=== PATIENT | female | born 1975 | race Caucasian/White ===

== ENCOUNTER → 2016-11-02 | Outpatient (CLI) | payer OTHER | LOC: CIMAGING 12:44 | PROVIDERS: ATTEND Obstetrics & Gynecology | DX: R92.8 Other abnormal and inconclusive findings on diagnostic imaging of breast (principal) | CPT/HCPCS: 76641-PO; G0206 ==

== ENCOUNTER → 2016-11-29 | Outpatient (CLI) | payer OTHER ==
[~2016-11-29] MED LIST: BUPIVACAINE 0.5% 10 ML SDV ONE; LIDO/EPI 1% **Not for Epidural 20 ML MDV ONE; LIDOCAINE 1% 300 MG/30 ML SDV ONE; THROMBIN (BOVINE) 5,000 UNIT VIAL TP ONE
== END ==
LOC: FIMAGING 06:56
PROVIDERS: ATTEND Obstetrics & Gynecology
PROC: 0HBT3ZX Excision of Right Breast, Percutaneous Approach, Diagnostic (ICD-10-PCS; principal; 2016-11-29)
DX: D24.1 Benign neoplasm of right breast (principal)
CPT/HCPCS: G0206

== ENCOUNTER 2017-01-13 04:48 | Emergency (ER) | payer OTHER ==
[2017-01-13 05:03] VITALS: TEMP 98.2; O2SAT 94
--- NOTE | 2017-01-13 05:10 | EDPHY ---
H & P Time Seen by Provider: 01/13/17 05:08 HPI/ROS: CC: Migraine HPI: This 41-year-old female with past medical history of migraine headaches usually associated with her menstrual cycle and hypothyroidism presents to the emergency department with her mother for complaints of headache for the last 6 hours. She states she has had a virus which has been contributing to her headaches. However, she woke up this morning at about 2:30 a.m. with a migraine. She describes the discomfort as a squeezing across the top and back of her head and also behind her eyes. She has had nausea without vomiting. She took Tylenol with little relief. She did not take her usual Imitrex because at her last doctor's visit her blood pressure was slightly high and she was worried that Imitrex might not be safe. She was seen the weekend before last for a headache at a [facility]. They gave her "the cocktail. " She was also seen a few days ago at [facility] and had a flu swab done which was negative. She states they gave her Tamiflu anyway which they said would improve her symptoms of body aches, fever, chills, congestion, and non-productive cough. She has not had a significant sore throat. She denies visual disturbances or neck stiffness. She has mild light sensitivity. The headache has now progressed to a 9/10 but is not the worst headache of her life. She has no numbness, tingling, or asymmetric weakness. REVIEW OF SYSTEMS: Constitutional: No current fever, no chills. Eyes: No discharge. ENT: No sore throat. Respiratory: No cough, no shortness of breath. Cardiac: No chest pain, no palpitations. Gastrointestinal: No abdominal pain, no vomiting. Genitourinary: No dysuria. Musculoskeletal: No back or neck pain. Skin: No rashes. Neurological: See HPI. FDLMP 2 w/e ago Past Medical/Surgical History: PMH: Migraines, Hypothyroidism, Asthma PSH: Breast Bx (benign), Lumpectomy (fatty tumor), Tonsillectomy and Adenoidectomy FH: Mother - High Cholesterol; Father - Essential Tremor, Ulcerative Colitis, High Cholesterol, HTN Allergies: Penicillin Meds: Synthroid; Currently also taking Tamiflu Social History: Denies tobacco products, ETOH or marijuana Smoking Status: Never smoked Physical Exam: General Appearance: Alert, mod distress. Eyes: Pupils equal and round no pallor or injection. ENT, Mouth: Mucous membranes are moist. Respiratory: There are no retractions, lungs are clear to auscultation. Cardiovascular: Regular rate and rhythm. Gastrointestinal: Abdomen is soft and nontender, no masses, bowel sounds normal. Neurological: Awake and alert, sensory and motor exams grossly normal. No facial asymmetry, no pronator drift. Normal FTN. Skin: Warm, no rashes. Slightly moist at base of neck. Musculoskeletal: Neck is supple nontender. Extremities are symmetrical, full range of motion. Psychiatric: Patient is oriented X 3, there is no agitation. DIFFERENTIAL DIAGNOSIS: After history and physical exam differential diagnosis was considered for but not limited to: Migraine, Viral Syndrome, Viral Meningitis, Strep, Dehydration, other causes. Constitutional: Initial Vital Signs Temperature (C) 98.2 F 01/13/17 04:59 Heart Rate 86 01/13/17 04:59 Respiratory Rate 18 01/13/17 04:59 Blood Pressure 167/101 H 01/13/17 04:59 O2 Sat (%) 94 01/13/17 04:59 O2 Delivery Mode Room Air Allergies/Adverse Reactions: Penicillins Allergy (Unknown, Verified 01/13/17 04:58) TESTED POSITIVE CATS Allergy (Mild, Uncoded 01/13/17 04:58) SINUS CONGESTION CLEARASIL Allergy (Mild, Uncoded 01/13/17 04:58) Rash DUST Allergy (Mild, Uncoded 01/13/17 04:58) SINUS CONGESTION Home Medications: Medication Instructions Recorded Levothyroxine [Synthroid 100 mcg 100 mcg PO DAILY06 09/10/12 (RX)] Oseltamivir Phosphate [Tamiflu 75 75 mg PO BID #10 cap 02/13/14 mg (RX)] Promethazine HCl [Phenergan 25mg 25 mg PO Q6H PRN 3 Days #12 tab 01/13/17 (*)] Medical Decision Making ED Course/Re-evaluation: The patient was seen and examined. Vital signs were reviewed and were remarkable for a mildly elevated blood pressure. She was given IV fluids for hydration with good results, as well as Toradol 15 mg IV push, Zofran 4 mg IV push, Benadryl 25 mg IV push, and metoclopramide 5 mg IV push. Her nausea resolved but her headache remained unchanged. She was then given Haldol 2.5 mg IV push which brought her headache down to a 4-5. She would like to go home and get some rest. She will stay with her mother today. She was given a take- home pack and Rx for Phenergan. She will return to the ED if symptoms return, change, worsen or any other concerns. Departure - Departure Disposition: Home, Routine, Self-Care Clinical Impression: Migraine Qualifiers: Migraine type: with aura Status migrainosus presence: without status migrainosus Intractability: not intractable Qualified Code(s): G43.109 - Migraine with aura, not intractable, without status migrainosus Condition: Good Instructions: Migraine Headache (ED), Viral Syndrome (ED), Promethazine (By mouth) Additional Instructions: Rest, drink plenty of fluids. Follow up with your Primary Care Provider if symptoms persist or return to the ED sooner if worse. Referrals: Patient,NotPresent [Primary Care Provider] - As per Instructions Prescriptions: Promethazine HCl [Phenergan 25mg (*)] 25 mg PO Q6H PRN 3 Days #12 tab PRN Reason: Nausea/Vomiting, Use 1st
[2017-01-13] MEDS ORDERED: KETOROLAC 15 MG/1 ML SDV IVP ONE (05:22)
[2017-01-13] MEDS ORDERED: ONDANSETRON 4 MG/2 ML VIAL IVP ONE (05:22)
[2017-01-13] MEDS ORDERED: METOCLOPRAMIDE 10 MG/2 ML VIAL IVP ONE (05:25)
[2017-01-13] MEDS ORDERED: NS 1,000 ML IV ONE (05:27)
[2017-01-13] MEDS ORDERED: HALOPERIDOL LACT 5 MG/ML INJ IVP ONE (05:57)
[2017-01-13] MEDS ORDERED: PROMETHAZINE 25 MG PREPACK #4 BTL TAKEHOME ONE (06:21)
[2017-01-13 06:35] VITALS: BP 146/96; PULSE 75; RESP 18
== END 2017-01-13 06:33 | disposition home or self-care (01) ==
LOC: CED 04:48
DX: G43.109 Migraine with aura, not intractable, without status migrainosus (principal); E86.9 Volume depletion, unspecified; J45.909 Unspecified asthma, uncomplicated
CPT/HCPCS: 96374; J1200; J1885; J2405; J2765